=== PATIENT | female | born 1945 | race Asian ===

== ENCOUNTER → 2019-02-24 | Outpatient (CLI) | payer MEDICARE, OTHER | END | disposition home or self-care (01) | LOC: RADPV 11:20 | PROVIDERS: ATTEND Internal Medicine | DX: R05 Cough (principal); I70.0 Atherosclerosis of aorta ==

== ENCOUNTER 2020-04-05 05:23 | Day surgery (SDC) | payer MEDICARE, OTHER ==
[2020-04-03 09:47] LABS: COVID AG,FIA SOURCE NASOPHARYNGEAL
[~2020-04-05] VITALS: Ht 162.6 cm; Wt 63.6 kg
[~2020-04-05 05:23] MED LIST: AMLO-257 PO; ATOR10TA84 PO; HYDR-1475 PO; LOSA50TA37 PO; PRED5 PO
[2020-04-05] MEDS ORDERED: ONDANSETRON HCL 4 MG/2 ML VIAL IVP ONE (05:24)
[2020-04-05] MEDS ORDERED: LIDOCAINE/PF 2% 5 ML VIAL IM ONE (05:24)
[2020-04-05] MEDS ORDERED: NEOMYCIN/POLYMYXIN B/DEXAMETH 3.5 GM OPHTHALMIC OINTMENT OD ONE (05:24)
[2020-04-05] MEDS ORDERED: MIDAZOLAM HCL 2 MG/2 ML VIAL IVP ONE (05:24)
[2020-04-05] MEDS ORDERED: HYALURONIDASE, HUMAN RECOMB. 150 UNITS/ML ID ONE (05:24)
[2020-04-05] MEDS ORDERED: POVIDONE-IODINE 10% 15 ML SOLUTION UD TP ONE (05:24)
[2020-04-05] MEDS ORDERED: PROPOFOL 1% 20 ML VIAL IVP ONE (05:24)
[2020-04-05] MEDS ORDERED: FentaNYL CITRATE-PF 100 MCG/2 ML VIAL IVP ONE (05:24)
[2020-04-05] MEDS ORDERED: TETRACAINE HCL/PF 0.5% 4 ML OPHTHALMIC SOLUTION ONE (05:25)
[2020-04-05] MEDS ORDERED: RINGERS SOLUTION,LACTATED 500 ML IV ONE ×2 (05:25→06:00)
[2020-04-05] MEDS ORDERED: TETRACAINE HCL/PF 0.5% 4 ML OPHTHALMIC SOLUTION OU ONE (07:00)
[2020-04-05] MEDS ORDERED: LIDOCAINE 2%/EPI 1:200,000/PF 20 ML VIAL ONE (07:30)
[2020-04-05] MEDS ORDERED: BUPIVACAINE HCL/PF 0.75% 10 ML VIAL ONE (07:30)
[2020-04-05] MEDS ORDERED: SODIUM CHLORIDE 0.9% 0 ML ONE (08:18)
[2020-04-05] MEDS ORDERED: RINGERS SOLUTION,LACTATED 1,000 ML IV ONE (08:18)
== END 2020-04-05 09:15 | disposition home or self-care (01) ==
LOC: SDS 05:23
PROVIDERS: ATTEND Ophthalmology
DX: H02.831 Dermatochalasis of right upper eyelid (principal); H02.834 Dermatochalasis of left upper eyelid; I10 Essential (primary) hypertension; E78.00 Pure hypercholesterolemia, unspecified; Z79.899 Other long term (current) drug therapy; Z20.828 Contact with and (suspected) exposure to other viral communicable diseases; Z98.890 Other specified postprocedural states
CPT/HCPCS: 15822; 87426; 93005; C9803; J2250; J2405; J2704; J3010; J3473; J3490 ×2; J7120 ×2; J7030